=== PATIENT | male | born 1985 | race Caucasian/White ===

== ENCOUNTER 2017-10-12 13:37 | Emergency (ER) | payer MEDICAID ==
[~2017-10-12] VITALS: Ht 177.8 cm; Wt 75.0 kg
[2017-10-12 13:45] VITALS: BP 122/71
== END 2017-10-13 07:33 | disposition left against medical advice (07) ==
LOC: ER 15:18
DX: J02.9 Acute pharyngitis, unspecified (principal); Z53.21 Procedure and treatment not carried out due to patient leaving prior to being seen by health care provider

== ENCOUNTER 2019-08-21 12:46 | Emergency (ER) | payer MEDICAID ==
[~2019-08-21] VITALS: Ht 175.3 cm; Wt 67.0 kg
[2019-08-21 13:39] VITALS: BP 126/81
[2019-08-21] MEDS ORDERED: ACETAMINOPHEN 500MG TABLET PO ONE (16:15)
== END 2019-08-21 17:35 | disposition home or self-care (01) ==
LOC: ER 12:46
DX: S83.91XA Sprain of unspecified site of right knee, initial encounter (principal); F15.10 Other stimulant abuse, uncomplicated; F17.210 Nicotine dependence, cigarettes, uncomplicated; X58.XXXA Exposure to other specified factors, initial encounter; Y93.89 Activity, other specified; Y92.89 Other specified places as the place of occurrence of the external cause; Y99.8 Other external cause status
CPT/HCPCS: 73560; 99283

== ENCOUNTER 2019-08-23 16:28 | Emergency (ER) | payer MEDICAID ==
[~2019-08-23] VITALS: Ht 172.7 cm; Wt 68.0 kg
[2019-08-23 16:36] VITALS: BP 138/88
[2019-08-23] MEDS ORDERED: IBUPROFEN 600MG TABLET PO ONE (17:45)
== END 2019-08-23 19:22 | disposition home or self-care (01) ==
LOC: ER 16:28
DX: M25.561 Pain in right knee (principal); F15.10 Other stimulant abuse, uncomplicated
CPT/HCPCS: 99283; L1830

== ENCOUNTER 2021-07-22 15:37 | Emergency (ER) | payer MEDICAID ==
[~2021-07-22] VITALS: Ht 165.1 cm; Wt 75.0 kg
[2021-07-22] MEDS ORDERED: ACYC200C31 MT (21:43)
[2021-07-22] MEDS ORDERED: IBUPROFEN 400MG TABLET PO ONE (21:45)
[2021-07-22] MEDS ORDERED: TETANUS, DIPHTHERIA, PERTUSSIS VAC/PF 0.5ML (>10YR OLD) IM ONE (21:45)
[2021-07-22 22:34] VITALS: BP 113/66
== END 2021-07-22 22:34 | disposition home or self-care (01) ==
LOC: ER 15:37
DX: K13.79 Other lesions of oral mucosa (principal); S91.339A Puncture wound without foreign body, unspecified foot, initial encounter; W22.8XXA Striking against or struck by other objects, initial encounter; Y93.89 Activity, other specified; Y92.832 Beach as the place of occurrence of the external cause
CPT/HCPCS: 90471; 90715; 99283